=== PATIENT | female | born 1945 | race Caucasian/White ===

== ENCOUNTER 2019-10-11 14:35 | Inpatient (IN) | payer MEDICARE, OTHER, SELFPAY ==
[2019-10-11] VITALS (10 sets, daily range): BP systolic 134–206; BP diastolic 67–95; PULSE 53–80; RESP 14–20; TEMP 36.6; O2SAT 96–99; BMI 31.6
--- NOTE | 2019-10-11 14:39 | ED_ITS ---
Entered by Tania Rachel, acting as scribe for Pamela Phoenix DO Documented by User: Pamela Phoenix DO 10/13/19 11:15 HPI - Chest Pain General: Chief Complaint: Chest Pain Stated Complaint: cp Time Seen by Provider: 10/11/19 14:59 Source: patient and family Mode of arrival: ambulatory Limitations: no limitations History of Present Illness: HPI narrative: 74 yo female presents with chest pain and shortness of breath. pt states this started 1 week ago but worsened yesterday. pt states she has been anxious because of a tripped cancelled due to the virus and her spouse having a heart attack and not telling her. pt denies any other symptoms at this time. complaint: chest pain Onset (ago): week(s) (1 week ago) Timing of current episode: constant and still present Prior episodes: Yes Onset: during rest Pain location: substernal Pain radiation: left arm Severity: moderate Quality: aching Relieving factors: nothing Exacerbating factors: nothing Associated symptoms: Reports dyspnea and nausea; Deny fever(s) Treatment prior to arrival: none Review of Systems General: Reports: 10 or more systems reviewed and unremarkable except in HPI and below Const: Reports: night sweats; Denies: fever, chills or fatigue ENMT: Denies: throat pain Card: Denies: swelling of feet/ankles Resp: Reports: shortness of breath GI: Reports: nausea : Denies: difficulty urinating Musc: Denies: back pain or extremity swelling Skin/Breast: Denies: rash Neuro: Denies: headache, numbness in extremities or weakness in extremities PFSH ED PFSH: Medical History (Updated 10/13/19 @ 07:19 by Abram Fang MD) Abdominal hernia CAD (coronary artery disease) Cataract Colon cancer DJD (degenerative joint disease) Dyslipidemia Hernia History of DVT (deep vein thrombosis) Hypertension Surgical History History of History of cholecystectomy History of colon surgery History of colonoscopy History of hernia surgery History of hysterectomy History of right hemicolectomy Status post left foot surgery Family History Other CAD (coronary artery disease) Cancer Social History Smoking and tobacco status: never smoked Alcohol intake: never Substance/Drug Use: never Physical Exam Const: COMMON NORMALS: no apparent distress and oriented x3 GENERAL APPEARANCE: cooperative; not in distress HENMT: COMMON NORMALS: normocephalic HEAD & SCALP: normal to inspection and normocephalic MOUTH: oral and palatal mucosa normal and lip normal THROAT: posterior oropharynx normal and tonsils normal Neck/C-Spine: COMMON NORMALS: full ROM, no lymphadenopathy, supple and no meningeal signs GENERAL: Yes normal visual inspection and Yes trachea midline Chest: COMMONS NORMALS: inspection of chest normal CHEST: Yes tenderness Resp: COMMON NORMALS: normal respiratory effort and clear to auscultation bilaterally EFFORT & INSPECTION: Yes able to speak in complete sentences and No respiratory distress AUSCULTATION: clear to auscultation bilaterally, no rales, no rhonchi and no wheezes Cardio: COMMON NORMALS: regular rate, regular rhythm, S1 normal heart sound, S2 normal heart sound and no murmurs RATE: regular rate RHYTHM: regular rhythm HEART SOUNDS: S1 normal and S2 normal PERIPHERAL PULSES: radial pulses present and dorsalis pedis pulses present GI: COMMON NORMALS: normal to inspection, nondistended, normoactive bowel sounds, soft to palpation and non-tender INSPECTION: Yes normal to inspection AUSCULTATION: Yes normoactive bowel sounds PALPATION: Yes soft, No tender, No guarding and No rigid RECTAL EXAM: deferred : COMMON NORMALS: Yes no CVA tenderness BLADDER/KIDNEY EXAM: Yes no CVA tenderness Back/Pelvis: COMMON NORMALS: no CVA tenderness Extremity: COMMON NORMALS: normal to inspection, full ROM, normal capillary refill, no calf tenderness and no pedal edema Neuro: COMMON NORMALS: oriented x3, CN's II-XII intact bilaterally, moves all extremities and no focal motor deficits MENINGEAL SIGNS: Yes no meningeal signs Psych: ATTITUDE: Yes other (anxious) Skin: COMMON NORMALS: no rashes or lesions noted GENERAL SKIN EXAM: no rashes or lesions noted Course Vital Signs: Vital signs: Vital Signs Temperature 98.1 F 10/13/19 04:00 Pulse Rate 65 10/13/19 09:07 Respiratory Rate 19 H 10/13/19 09:07 Blood Pressure 170/82 10/13/19 09:07 Pulse Oximetry 97 10/13/19 09:07 MDM - Chest Pain MDM Narrative: Medical decision making narrative: ptd troponin is 24 so I am waiting for her 2 hour trop. Pts HEART score is a 4. Lab Data: Attestation: I reviewed the patient's lab results. Labs: Lab Results 10/11/19 10/11/19 10/11/19 Range/Units 15:12 15:12 15:12 WBC 6.6 (4.0-10.0) 10^3/ uL RBC 5.59 H (4.1-5.3) 10^6/u L Hgb 16.0 H (11.5-15.3) g/dL Hct 47.3 H (37.0-47.0) % MCV 84.6 (81-99) fL MCH 28.6 (28.0-34.0) pg MCHC 33.8 (30.0-36.0) g/dL RDW 12.4 (12.1-15.1) % Plt Count 195 (130-400) 10^3/c mm MPV 9.5 (7.4-10.4) fL Neut % (Auto) 68.7 % Lymph % (Auto) 22.1 % [place] % (Auto) 6.2 % Eos % (Auto) 2.1 % Baso % (Auto) 0.6 % Neut # (Auto) 4.5 (1.8-7.7) 10^3/u L Lymph # (Auto) 1.5 (0.8-4.8) 10^3/u L [place] # (Auto) 0.4 (0.2-0.9) 10^3/u L Eos # (Auto) 0.1 (0.0-0.8) 10^3/u L Baso # (Auto) 0.0 (0.0-0.1) 10^3/u L Nucleated RBC % (a uto) 0 % Nucleated RBCs # 0.0 /100WBC Sodium 142 (136-145) mmol/L Potassium 3.9 (3.5-5.1) mmol/L Chloride 103 (98-107) mmol/L Carbon Dioxide 24 (22-29) mmol/L Anion Gap 18.9 (5-19) BUN 16 (8-23) mg/dL Creatinine 1.0 H (0.5-0.9) mg/dL Glucose 150 H (65-115) mg/dL Estimat Average Gl ucose Hemoglobin A1c (4.0-6.0) % Calculated Osmolal ity 293 (285-295) mOsm/k g Calcium 10.8 H (8.5-10.5) mg/dL Total Bilirubin 0.7 (0.15-1.2) mg/dL AST 17 (0-32) U/L ALT 12 (0-33) U/L Alkaline Phosphata se 123 H (35-105) IU/L Troponin T Baselin e 24 H (0-10) ng/mL Troponin T 120 Min [place] (0-10) ng/mL Delta Troponin T (0-10) ABS# Total Protein 7.0 (6.6-8.7) g/dL Albumin 4.8 (3.5-5.2) g/dL Globulin 2.2 (1.3-4.6) g/dL 10/11/19 10/11/19 Range/Units 15:12 17:14 WBC (4.0-10.0) 10^3/ uL RBC (4.1-5.3) 10^6/u L Hgb (11.5-15.3) g/dL Hct (37.0-47.0) % MCV (81-99) fL MCH (28.0-34.0) pg MCHC (30.0-36.0) g/dL RDW (12.1-15.1) % Plt Count (130-400) 10^3/c mm MPV (7.4-10.4) fL Neut % (Auto) % Lymph % (Auto) % [place] % (Auto) % Eos % (Auto) % Baso % (Auto) % Neut # (Auto) (1.8-7.7) 10^3/u L Lymph # (Auto) (0.8-4.8) 10^3/u L [place] # (Auto) (0.2-0.9) 10^3/u L Eos # (Auto) (0.0-0.8) 10^3/u L Baso # (Auto) (0.0-0.1) 10^3/u L Nucleated RBC % (a uto) % Nucleated RBCs # /100WBC Sodium (136-145) mmol/L Potassium (3.5-5.1) mmol/L Chloride (98-107) mmol/L Carbon Dioxide (22-29) mmol/L Anion Gap (5-19) BUN (8-23) mg/dL Creatinine (0.5-0.9) mg/dL Glucose (65-115) mg/dL Estimat Average Gl ucose 117 Hemoglobin A1c 5.7 (4.0-6.0) % Calculated Osmolal ity (285-295) mOsm/k g Calcium (8.5-10.5) mg/dL Total Bilirubin (0.15-1.2) mg/dL AST (0-32) U/L ALT (0-33) U/L Alkaline Phosphata se (35-105) IU/L Troponin T Baselin e (0-10) ng/mL Troponin T 120 Min [place] 110.0 H (0-10) ng/mL Delta Troponin T 86.0 H* (0-10) ABS# Total Protein (6.6-8.7) g/dL Albumin (3.5-5.2) g/dL Globulin (1.3-4.6) g/dL Imaging Data^: CXR: Radiologist's impression: [address] [address] XRay Report Signed Patient: Sophia New #: [id number] : 5Acct#:[id number] Age/Sex: 74 / FADM Date: 10/11/19 [facility] Attending Dr: Ordering Provider/Ordering MD: Pamela Phoenix DO Date of Service: 10/11/19 Procedure(s): XR chest 1V portable [id number] Accession Number(s): [id number] Report Number: [id number] WS: [id number] Portable AP upright chest, 10/11/2019 Clinical Data: chest pain Comparison: PA and lateral chest, 02/03/2015. Findings: No nodules, masses or effusions are seen. Heart is normal. The pulmonary vascularity is not increased. No pneumonia or pneumothorax is noted. The aortic arch and descending aorta show tortuosity. XR/XR chest 1V portable [id number] Impression: Atherosclerosis. Dictated By:Anh Frazier MD Signed By:Anh Frazier MDSigned Date/Time:10/11/19 1555 EKG Data^: EKG 1: Attestation: I personally reviewed and interpreted this EKG as follows: EKG interpretation time: 14:45 Interpretation: moderate st depression ant lat leads, rate 85, nsr Discharge Plan Discharge Patient Disposition: Admitted As Inpatient Admit Provider: Hakeem Cody Clinical Impression: Chest pain Condition: Stable Discharge Orders: Discharge Order (Routine); Ordered 10/13/19 Ordered By: Jesse Marroquin Referrals: Abram Fang MD [Physician] - 4-7 days ([facility] will contact you to schedule an follow-up appointment in 4 to 7 days. If, you haven't heard from them by Monday. Please, call ) Chico Robles MD [Family Provider] - (Please, call for an follow-up appointm ent with Dr. Robles in 4 to 7 days. ) Discharge Diet: Cardiac Discharge Activity: As per cardiac/pulm rehab instructions Patient Instructions: Lisinopril (By mouth), Nitroglycerin, Rapid Release (By mouth), Atorvastatin (By mouth), Clopidogrel (By mouth), Myocardial Infarction (DC), Coronary Artery Disease (DC), Coronary Intravascular Stent Placement (DC), Chronic Hypertension (GEN), Post Angiogram Home Care Instructions, Post Heart Attack Stoplight Additional Instructions: -follow up with Dr. Fang in 1 week -follow up with primary care for blood pressure check in 1-2 weeks -do blood work cmp in 2-3 days -no lifiting over 5 lbs with right arm for next week Discharge Date/Time: 10/11/19 19:01 Sign Out Sign Out Data: Patient Sign Out occurred on 10/11/19 at 17:01. Patient's care was discussed, and care was transferred from Pamela Torres DO to Lisa Trivedi MD. Sign Out Comment: waiting for a 2 hour troponin, then disposition Last updated by Pamela Phoenix DO at 10/11/19 16:51 Coding Level of Care Code ED Airline Station Agent for Chg Fwd Exam Comprehensive Documented by User: Lisa Trivedi MD 10/11/19 19:13 HPI - Chest Pain General: Chief Complaint: Chest Pain Stated Complaint: cp Time Seen by Provider: 10/11/19 14:59 PFSH ED PFSH: Medical History (Updated 10/13/19 @ 07:19 by Abram Fang MD) Abdominal hernia CAD (coronary artery disease) Cataract Colon cancer DJD (degenerative joint disease) Dyslipidemia Hernia History of DVT (deep vein thrombosis) Hypertension Surgical History History of History of cholecystectomy History of colon surgery History of colonoscopy History of hernia surgery History of hysterectomy History of right hemicolectomy Status post left foot surgery Family History Other CAD (coronary artery disease) Cancer Social History Smoking and tobacco status: never smoked Alcohol intake: never Substance/Drug Use: never Course Vital Signs: Vital signs: Vital Signs Temperature 98.1 F 10/13/19 04:00 Pulse Rate 65 10/13/19 09:07 Respiratory Rate 19 H 10/13/19 09:07 Blood Pressure 170/82 10/13/19 09:07 Pulse Oximetry 97 10/13/19 09:07 MDM - Chest Pain MDM Narrative: Medical decision making narrative: [id number] Cody will come see the patient in the emergency department and decide where she needs to be admitted. Troponin at 2 hours is elevated 210. When I went to update her on her troponin result she tells me she is pain-free. Of note she also took a whole aspirin at home prior to coming to the ER. I asked her about her stress test in 2014 and she said that she was hospitalized but found to have some GI bleeding and colon cancer and needed a blood transfusion she never had a cardiac cath. Lab Data: Labs: Lab Results 10/11/19 10/11/19 10/11/19 Range/Units 15:12 15:12 15:12 WBC 6.6 (4.0-10.0) 10^3/ uL RBC 5.59 H (4.1-5.3) 10^6/u L Hgb 16.0 H (11.5-15.3) g/dL Hct 47.3 H (37.0-47.0) % MCV 84.6 (81-99) fL MCH 28.6 (28.0-34.0) pg MCHC 33.8 (30.0-36.0) g/dL RDW 12.4 (12.1-15.1) % Plt Count 195 (130-400) 10^3/c mm MPV 9.5 (7.4-10.4) fL Neut % (Auto) 68.7 % Lymph % (Auto) 22.1 % [place] % (Auto) 6.2 % Eos % (Auto) 2.1 % Baso % (Auto) 0.6 % Neut # (Auto) 4.5 (1.8-7.7) 10^3/u L Lymph # (Auto) 1.5 (0.8-4.8) 10^3/u L [place] # (Auto) 0.4 (0.2-0.9) 10^3/u L Eos # (Auto) 0.1 (0.0-0.8) 10^3/u L Baso # (Auto) 0.0 (0.0-0.1) 10^3/u L Nucleated RBC % (a uto) 0 % Nucleated RBCs # 0.0 /100WBC Sodium 142 (136-145) mmol/L Potassium 3.9 (3.5-5.1) mmol/L Chloride 103 (98-107) mmol/L Carbon Dioxide 24 (22-29) mmol/L Anion Gap 18.9 (5-19) BUN 16 (8-23) mg/dL Creatinine 1.0 H (0.5-0.9) mg/dL Glucose 150 H (65-115) mg/dL Estimat Average Gl ucose Hemoglobin A1c (4.0-6.0) % Calculated Osmolal ity 293 (285-295) mOsm/k g Calcium 10.8 H (8.5-10.5) mg/dL Total Bilirubin 0.7 (0.15-1.2) mg/dL AST 17 (0-32) U/L ALT 12 (0-33) U/L Alkaline Phosphata se 123 H (35-105) IU/L Troponin T Baselin e 24 H (0-10) ng/mL Troponin T 120 Min [place] (0-10) ng/mL Delta Troponin T (0-10) ABS# Total Protein 7.0 (6.6-8.7) g/dL Albumin 4.8 (3.5-5.2) g/dL Globulin 2.2 (1.3-4.6) g/dL 10/11/19 10/11/19 Range/Units 15:12 17:14 WBC (4.0-10.0) 10^3/ uL RBC (4.1-5.3) 10^6/u L Hgb (11.5-15.3) g/dL Hct (37.0-47.0) % MCV (81-99) fL MCH (28.0-34.0) pg MCHC (30.0-36.0) g/dL RDW (12.1-15.1) % Plt Count (130-400) 10^3/c mm MPV (7.4-10.4) fL Neut % (Auto) % Lymph % (Auto) % [place] % (Auto) % Eos % (Auto) % Baso % (Auto) % Neut # (Auto) (1.8-7.7) 10^3/u L Lymph # (Auto) (0.8-4.8) 10^3/u L [place] # (Auto) (0.2-0.9) 10^3/u L Eos # (Auto) (0.0-0.8) 10^3/u L Baso # (Auto) (0.0-0.1) 10^3/u L Nucleated RBC % (a uto) % Nucleated RBCs # /100WBC Sodium (136-145) mmol/L Potassium (3.5-5.1) mmol/L Chloride (98-107) mmol/L Carbon Dioxide (22-29) mmol/L Anion Gap (5-19) BUN (8-23) mg/dL Creatinine (0.5-0.9) mg/dL Glucose (65-115) mg/dL Estimat Average Gl ucose 117 Hemoglobin A1c 5.7 (4.0-6.0) % Calculated Osmolal ity (285-295) mOsm/k g Calcium (8.5-10.5) mg/dL Total Bilirubin (0.15-1.2) mg/dL AST (0-32) U/L ALT (0-33) U/L Alkaline Phosphata se (35-105) IU/L Troponin T Baselin e (0-10) ng/mL Troponin T 120 Min [place] 110.0 H (0-10) ng/mL Delta Troponin T 86.0 H* (0-10) ABS# Total Protein (6.6-8.7) g/dL Albumin (3.5-5.2) g/dL Globulin (1.3-4.6) g/dL Discharge Plan Discharge Patient Disposition: Admitted As Inpatient Admit Provider: Hakeem Cody Clinical Impression: Chest pain Condition: Stable Discharge Orders: Discharge Order (Routine); Ordered 10/13/19 Ordered By: Jesse Marroquin Referrals: Abram Fang MD [Physician] - 4-7 days ([facility] will contact you to schedule an follow-up appointment in 4 to 7 days. If, you haven't heard from them by Monday. Please, call ) Chico Robles MD [Family Provider] - (Please, call for an follow-up appointment with Dr. Robles in 4 to 7 days. ) Discharge Diet: Cardiac Discharge Activity: As per cardiac/pulm rehab instructions Patient Instructions: Lisinopril (By mouth), Nitroglycerin, Rapid Release (By mouth), Atorvastatin (By mouth), Clopidogrel (By mouth), Myocardial Infarction (DC), Coronary Artery Disease (DC), Coronary Intravascular Stent Placement (DC), Chronic Hypertension (GEN), Post Angiogram Home Care Instructions, Post Heart Attack Stoplight Additional Instructions: -follow up with Dr. Fang in 1 week -follow up with primary care for blood pressure check in 1-2 weeks -do blood work cmp in 2-3 days -no lifiting over 5 lbs with right arm for next week Discharge Date/Time: 10/11/19 19:01 Sign Out Sign Out Data: Patient Sign Out occurred on 10/11/19 at 17:01. Patient's care was discussed, and care was transferred from Pamela Torres DO to Lisa Trivedi MD. Sign Out Comment: waiting for a 2 hour troponin, then disposition Last updated by Pamela Phoenix DO at 10/11/19 16:51 Coding Level of Care Code ED Airline Station Agent for Chg Fwd Exam Comprehensive The documentation recorded by the Wilson pena Bridget Annette, accurately reflects the service I personally performed and the decisions made by , Pamela Phoenix DO
--- NOTE | 2019-10-11 15:07 | ECG_ITS ---
Measurements Intervals [place] Rate: 85 P: 80 VA: 165 QRS: 14 QRSD: 97 T: 68 QT: 375 QTc: [address] DEPRESSION [0.05+ mV ST DEPRESSION] Compared to ECG 05/30/2017 10:58:03 ST (T wave) deviation now present Sinus arrhythmia no longer present T-wave abnormality no longer present Electronically Signed On 10-11-2019 15:38:09 CDT by Abram Fang M.D. [id number]
--- NOTE | 2019-10-11 15:07 | XR_ITS ---
WS: [id number] Portable AP upright chest, 10/11/2019 Clinical Data: chest pain Comparison: PA and lateral chest, 02/03/2015. Findings: No nodules, masses or effusions are seen. Heart is normal. The pulmonary vascularity is not increased. No pneumonia or pneumothorax is noted. The aortic arch and descending aorta show tortuosi ty. XR/XR chest 1V portable [id number] Impression: Atherosclerosis.
[2019-10-11 15:27] LABS: Basophils % 0.6 %; Eosinophils # 0.1 10^3/uL (0.0-0.8); Eosinophils % 2.1 %; Hematocrit 47.3 % (37.0-47.0); Lymphocytes # 1.5 10^3/uL (0.8-4.8); Lymphocytes % 22.1 %; Mean Corpuscular HGB Conc 33.8 g/dL (30.0-36.0); Mean Corpuscular Hemoglobin 28.6 pg (28.0-34.0); Mean Corpuscular Volume 84.6 fL (81-99); Mean Platelet Volume 9.5 fL (7.4-10.4); Monocytes # 0.4 10^3/uL (0.2-0.9); Monocytes % 6.2 %; Neutrophils # 4.5 10^3/uL (1.8-7.7); Neutrophils % 68.7 %; Nucleated Red Blood Cells % 0 %; Platelet Count 195 10^3/cmm (130-400); Red Blood Count 5.59 10^6/uL (4.1-5.3); Red Cell Distribution Width 12.4 % (12.1-15.1); White Blood Count 6.6 10^3/uL (4.0-10.0)
--- NOTE | 2019-10-11 15:34 | PC.NURSE ---
Patient ambulated to restroom with steady gait at this time.
[2019-10-11 15:40] LABS: Alanine Aminotransferase 12 U/L (0-33); Albumin Level 4.8 g/dL (3.5-5.2); Alkaline Phosphatase 123 IU/L (35-105); Anion Gap 18.9 (5-19); Aspartate Amino Transferase 17 U/L (0-32); Blood Urea Nitrogen 16 mg/dL (8-23); Calcium 10.8 mg/dL (8.5-10.5); Carbon Dioxide 24 mmol/L (22-29); Chloride 103 mmol/L (98-107); Globulin 2.2 g/dL (1.3-4.6); Glucose 150 mg/dL (65-115); Osmolality Calculated 293 mOsm/kg (285-295); Potassium 3.9 mmol/L (3.5-5.1); Sodium 142 mmol/L (136-145); Total Bilirubin 0.7 mg/dL (0.15-1.2)
[2019-10-11 15:41] LABS: Troponin(5th) Baseline 24 ng/mL (0-10)
[2019-10-11] MEDS: cloNIDine 0.1 mg Tablet PO (16:38)
--- NOTE | 2019-10-11 17:07 | ECG_ITS ---
Measurements Intervals [place] Rate: 74 P: 69 CT: 177 QRS: -16 QRSD: 93 T: 76 QT: 372 QTc: [address] & T-WAVE ABNORMALITY Compared to ECG 10/11/2019 14:45:35 T-wave abnormality now present ST (T wave) deviation no longer present Electronically Signed On 10-11-2019 18:10:50 CDT by Bertha Breen M.D. [id number]
[2019-10-11] MEDS: nitroglycerin 1 gm/inch oint Pkt 0.5 INCH TOPICAL (18:09)
--- NOTE | 2019-10-11 18:32 | PM.HP ---
Providers/Chief Complaint Chief Complaint: cp History of Present Illness Ariella New is a 74 year old female who presents to the emergency department with some chest discomfort. She reports she has been having it at least the last for 5 days. She was experienced in with this with exertion, heavy feeling radiating to her left arm. This would go promptly away with rest. She had actually gone to her patient's cardiac rehab and experienced. She reports today it is just come and gone all day even without exertion. She reports currently she is chest discomfort free. She believes the nitroglycerin she received sublingually helped some. She reports she is already taken an aspirin today. She denies any prior history of coronary disease. She reports no recent history of fever, or cough. She reports she always has a little nasal congestion which is unchanged. She denies any recent history of significant heartburn, hematemesis, blood in stool, or black or tarry stool. She reports associated symptoms with the chest discomfort was queasiness of her stomach, and shortness of breath. She denies any pleuritic quality to the pain. Review of Systems General: Reports: 10 or more systems reviewed and unremarkable except in HPI and below Const: Denies: fever or chills Eyes: Denies: blurry vision ENMT: Denies: throat pain Card: Reports: chest pain; Denies: palpitations Resp: Reports: shortness of breath GI: Reports: nausea; Denies: abdominal pain : Denies: flank pain Musc: Reports: extremity pain; Denies: back pain Skin/Breast: Denies: rash Neuro: Reports: headache Psych: Denies: depression Endo: Denies: excessive urination Gavin/Lymph: Denies: easy bruising All/Imm: Denies: hives Medications/Allergies Home Medications Medication Instructions Recorded Confirmed Last Taken Type Fishoil 1 tab PO DAILY 10/11/19 10/11/19 10/10/19 History Sary Superfruit Otc 250 mg PO DAILY 10/11/19 10/11/19 10/11/19 History amlodipine 5 mg PO DAILY 10/11/19 10/11/19 10/11/19 History aspirin 1 mg PO PRN PRN 10/11/19 10/11/19 10/11/19 History benazepril 20 mg PO DAILY 10/11/19 10/11/19 10/11/19 History coenzyme Q10 [CoQ-10] 100 mg PO DAILY 10/11/19 10/11/19 10/10/19 History magnesium 500 mg PO DAILY 10/11/19 10/11/19 Unknown History Allergies Allergy/AdvReac Type Severity Reaction Status Date / Time CILLINS Allergy ALGY-Rash Uncoded 10/11/19 14:46 MYCINS Allergy ALGY-Nasal Uncoded 10/11/19 14:46 Discharge STEROIDS Allergy Unknown Uncoded 10/11/19 14:46 PFSH Acute PFSH: Medical History (Updated 10/11/19 @ 18:42 by Hakeem Cody MD) Abdominal hernia Cataract Colon cancer DJD (degenerative joint disease) Hernia History of DVT (deep vein thrombosis) Hypertension Surgical History (Updated 10/11/19 @ 18:41 by Hakeem Cody MD) History of History of cholecystectomy History of colon surgery History of colonoscopy History of hernia surgery History of hysterectomy History of right hemicolectomy Status post left foot surgery Family History (Updated 10/11/19 @ 18:39 by Hakeem Cody MD) Other CAD (coronary artery disease) Cancer Social History (Updated 10/11/19 @ 18:39 by Hakeem Cody MD) Smoking and tobacco status: never smoked Alcohol intake: never Substance/Drug Use: never Vitals/I&O/Wt Last Vital Signs Temp 97.9 F 10/11/19 14:40 Pulse 75 10/11/19 17:00 Resp 20 H 10/11/19 17:00 BP 179/92 10/11/19 17:00 Pulse Ox 96 10/11/19 17:00 Weight last 48 hrs Weight 83.461 kg Physical Exam Narrative: EXAM NARRATIVE: General exam is a white female, reporting she is chest discomfort free, in no apparent distress HEENT: Pupils equally round. Oropharynx is clear. Neck is supple no lymphadenopathy or thyromegaly Cardiovascular regular rate and rhythm without murmur Lungs clear no wheezing or crackles Abdomen is soft with positive bowel sounds. No obvious organomegaly was deferred Extremities no cyanosis clubbing or edema. Left leg with valgus deformity of the knee Skin without rash Neuro no focal deficits Data : 10/11/19 15:12 10/11/19 15:12 Other data: Both EKGs are reviewed. Normal sinus rhythm, normal axis. Initial EKG has some lateral ST depression that appears to improve on the second tracing. Chest x-ray is performed which demonstrates no infiltrate A&P Assessment and plan (1) Chest pain: She has a history consistent with angina. Troponin elevation, delta, is consistent with non-ST elevation myocardial infarction. EKG is concerning for ischemic changes initially. Admission to cardiac stepdown unit Nitroglycerin ointment Initiate statin, lipid profile in the morning Aspirin daily Full dose anticoagulation Initiate metoprolol 12.5 mg twice daily Continue FAN inhibitor Hold Norvasc for now as initiating beta-alex Continue to trend troponin Cardiology consultation Check echocardiogram Check TSH Status: Acute Qualifiers: Chest pain type: unspecified Qualified Code(s): R07.9 - Chest pain, unspecified Code(s): R07.9 - Chest pain, unspecified (2) Hypertension: Medications as above Status: Acute Code(s): I10 - Essential (primary) hypertension Additional A&P Information Elevated glucose. Check hemoglobin A1c Unknown lipid status. Check lipid profile Past history of DVT History of colon cancer. According to patient this was localized and she received no chemotherapy DJD Attestations Medical Necessity Statement*: Will need greater than 2 midnight stay for evaluation of chest discomfort, non-ST elevation myocardial infarction. Time Spent in Patient Care: Greater than 35 minutes Coding Level of Care Code Acute Executive Compensation Analyst for Tram García Diagnoses Chest pain R07.9 Chest pain type: unspecified Hypertension I10
[2019-10-11 19:35] LABS: Estmated Average Glucose 117; Hemoglobin A1C 5.7 % (4.0-6.0)
--- NOTE | 2019-10-11 19:39 | PC.NURSE ---
Patient arrived from ER at 1900 via stretcher. Patient is Alert and oriented. Placed on telemetry and vitals obtained. Patient oriented to the room and call light is within reach. Will continue to monitor.
[2019-10-11] MEDS: enoxaparin 80 mg/0.8 mL Syringe SUBCUT (20:37)
[2019-10-11 22:11] LABS: Troponin 5 6HR 210.9 ng/mL (0-10); Troponin 5 6HR Delta 186.9 ng/L (0-12)
[2019-10-12] VITALS (26 sets, daily range): BP systolic 125–174; BP diastolic 64–96; PULSE 41–81; RESP 9–77; TEMP 36.8; O2SAT 93–96
[2019-10-12] MEDS: nitroglycerin 1 gm/inch oint Pkt 0.5 INCH TOPICAL ×2 (00:38→06:26)
[2019-10-12 04:12] LABS: Basophils % 0.6 %; Eosinophils # 0.1 10^3/uL (0.0-0.8); Eosinophils % 1.8 %; Hematocrit 42.7 % (37.0-47.0); Hemoglobin 14.1 g/dL (11.5-15.3); Lymphocytes # 2.1 10^3/uL (0.8-4.8); Lymphocytes % 30.2 %; Mean Corpuscular Hemoglobin 28.4 pg (28.0-34.0); Mean Corpuscular Volume 86.1 fL (81-99); Mean Platelet Volume 9.4 fL (7.4-10.4); Monocytes # 0.5 10^3/uL (0.2-0.9); Monocytes % 6.7 %; Neutrophils # 4.1 10^3/uL (1.8-7.7); Neutrophils % 60.6 %; Nucleated Red Blood Cells % 0 %; Platelet Count 188 10^3/cmm (130-400); Red Blood Count 4.96 10^6/uL (4.1-5.3); Red Cell Distribution Width 12.5 % (12.1-15.1); White Blood Count 6.8 10^3/uL (4.0-10.0)
[2019-10-12 05:01] LABS: Anion Gap 10.5 (5-19); Blood Urea Nitrogen 14 mg/dL (8-23); Calcium 10.3 mg/dL (8.5-10.5); Carbon Dioxide 29 mmol/L (22-29); Chloride 106 mmol/L (98-107); Cholesterol 200 mg/dL (0-200); Glucose 137 mg/dL (65-115); HDL Cholesterol 54 mg/dL (60-100); LDL Cholesterol Calculated 117 mg/dL (50-129); LDL HDL Ratio 2.17 RATIO (0.00-3.22); Osmolality Calculated 292 mOsm/kg (285-295); Potassium 3.5 mmol/L (3.5-5.1); Sodium 142 mmol/L (136-145); Triglycerides 146 mg/dL (0-150)
--- NOTE | 2019-10-12 07:51 | PM.CONSULT ---
Providers/Reason For Consult Consulting Physican/Specialty*: Cardiovascular medicine Reason for Consult*: Chest discomfort, elevated troponin Attending Physician: Jesse Marroquin MD History of Present Illness History of Present Illness Ariella New is a 74 year old female who has been having chest discomfort for a few weeks. Over the last 3 days it has worsened in frequency and intensity. She wrote it off to indigestion and was trying to ignore it. She has purposefully not paid very much attention to it. The symptoms are associated with shortness of breath and radiation down the left arm. Yesterday she began to have the discomfort at rest. She came to the emergency room and was given aspirin and Nitropaste. She is had a couple of brief episodes since being admitted. She still has the Nitropaste in place. Her troponins are elevated. Her EKG shows some minor ST segment depression in the lateral leads. She has no history of heart disease. Review of Systems General: Reports: 10 or more systems reviewed and unremarkable except in HPI and below Meds/Allergies Home Medications and Allergies Home Medications Medication Instructions Recorded Confirmed Type Fishoil 1 tab PO DAILY 10/11/19 10/11/19 History Sary Superfruit Otc 250 mg PO DAILY 10/11/19 10/11/19 History amlodipine 5 mg PO DAILY 10/11/19 10/11/19 History aspirin 1 mg PO PRN PRN 10/11/19 10/11/19 History benazepril 20 mg PO DAILY 10/11/19 10/11/19 History coenzyme Q10 [CoQ-10] 100 mg PO DAILY 10/11/19 10/11/19 History magnesium 500 mg PO DAILY 10/11/19 10/11/19 History Allergies Allergy/AdvReac Type Severity Reaction Status Date / Time CILLINS Allergy ALGY-Rash Uncoded 10/11/19 14:46 MYCINS Allergy ALGY-Nasal Uncoded 10/11/19 14:46 Discharge STEROIDS Allergy Unknown Uncoded 10/11/19 14:46 Current Medications Current Medications Generic Name Dose Route Start Last Admin Trade Name Freq PRN Reason Stop Dose Admin Enoxaparin Sodium 80 mg 10/11/19 20:00 10/11/19 20:37 Lovenox SUBCUT 80 mg Q12H ARELI Administration Nitroglycerin 0.5 inch 10/12/19 00:00 10/12/19 06:26 Nitro-Bid TOPICAL 0.5 inch Q6H ARELI Administration PFSH Acute PFSH: Medical History Abdominal hernia Cataract Colon cancer DJD (degenerative joint disease) Dyslipidemia Hernia History of DVT (deep vein thrombosis) Hypertension Surgical History History of History of cholecystectomy History of colon surgery History of colonoscopy History of hernia surgery History of hysterectomy History of right hemicolectomy Status post left foot surgery Family History Other CAD (coronary artery disease) Cancer Social History Smoking and tobacco status: never smoked Alcohol intake: never Substance/Drug Use: never Vitals/I&O/Wt Last Vital Signs Temp 98.3 F 10/12/19 05:53 Pulse 80 10/12/19 05:53 Resp 77 H 10/12/19 05:53 BP 159/88 10/12/19 05:53 Pulse Ox 94 10/12/19 05:53 10/11/19 10/12/19 10/12/19 22:59 06:59 14:59 Intake Total 150 / 150 Balance 150 / 150 Weight last 48 hrs Weight 184 lb Physical Exam Narrative: EXAM NARRATIVE: GENERAL: In general she is comfortable this morning. HEENT: Exam within normal limits. NECK: Supple without jugular vein distention. The carotid upstroke is normal without bruits. BACK: Exam normal. LUNGS: Clear. HEART: Regular rate and rhythm. ABDOMEN: Benign without organomegaly or tenderness. EXTREMITIES: No edema. NEUROLOGIC: Exam normal. SKIN: Unremarkable. Data Other Data: Other data: Troponin 24, 110, 210. EKG reveals sinus rhythm with lateral ST segment depression minimally. Chest x-ray unremarkable. Glucose 150. A&P Assessment and plan (1) Acute non-ST segment elevation myocardial infarction: Status: Acute Code(s): I21.4 - Non-ST elevation (NSTEMI) myocardial infarction (2) Hypertension: Status: Acute Code(s): I10 - Essential (primary) hypertension (3) Dyslipidemia: Status: Acute Code(s): E78.5 - Hyperlipidemia, unspecified (4) Chest pain: Status: Acute Qualifiers: Chest pain type: unspecified Qualified Code(s): R07.9 - Chest pain, unspecified Code(s): R07.9 - Chest pain, unspecified Additional A&P Information She needs coronary angiography. We will proceed later this morning. She has been made n.p.o. Consult Attestations Medical Necessity Statement: Not applicable Coding Level of Care Code New Pt Acute Harvesting Contractor for wilmar García Patient Type New History Detailed Exam Detailed Medical Decision Making Moderate Complexity Diagnoses Acute non-ST segment elevation myocardial infarction I21.4 Hypertension I10 Dyslipidemia E78.5 Chest pain R07.9 Chest pain type: unspecified
--- NOTE | 2019-10-12 08:32 | XACV_ITS ---
Exam Room: [facility] Ht: 163 cm Wt: 83 kg BSA: 1.97 m2 Gender: Female : 1945 Any Known Allergies: Other Exam Priority: Routine Procedure(s): Procedure Description: Diagnostic procedure Procedure Description: PCI procedure Procedure Description: Left ventriculography Procedure Description: PTCA Procedure Description: Miscellaneous Procedure Description: Coronary Angiography Diagnostic Cath Status: Urgent Diagnostic Findings Typical angina with troponin leak. EKG with minor ST depression lateral precordial leads. Angiography reveals right dominance. The left main coronary artery is normal. The LAD contains minor narrowing of 10 to 20% at the ostium. There is a tiny second diagonal branch which contains an 80% ostial stenosis. No other LAD lesions. The circumflex is basically normal. There is a very high marginal branch or ramus intermedius branch which has a 99% discrete stenosis in the proximal portion. This is the culprit lesion. The right coronary artery has an unusual takeoff. There is a 20 to 30% proximal stenosis and a 20 to 30% mid to distal stenosis. Otherwise no stenoses of the right coronary artery. PCI Status: Urgent PCI LVEF Assessed: Yes PCI Indication: NSTE - ACS Interventional Findings The ramus intermedius was stented primarily 2.75 x 12 mm stent without incident. Excellent angiographic result. Decision for PCI with Surgical Consult: No PCI for Multi-vessel Disease: No Conclusions Typical angina non-ST segment elevation AL. 99% ramus intermedius stented primarily. Otherwise minimal nonobstructive coronary artery disease. Mild to moderate hypokinesis of the high lateral wall. Ejection fraction 50%. Interventional RX Recommendation: PCI w/o planned CABG Diagnostic RX Recommendation: PCI w/o planned CABG Anticoagulation: Heparin Ventriculography Ejection Fraction: 50.0 % Pressures Phase:Rest AO : 195 mmHg / 55 mmHg ( 70 mmHg ) @ 4:54:00 AM 186 mmHg / 91 mmHg ( 132 mmHg ) @ 5:08:00 AM 187 mmHg / 90 mmHg ( 130 mmHg ) @ 5:08:00 AM LV : 169 mmHg / 11 mmHg / @ 5:07:00 AM 174 mmHg / 13 mmHg / @ 5:08:00 AM 168 mmHg / 11 mmHg / @ 5:08:00 AM Valves Phase:DefaultPhase AV : 0.0 mmHg @ 10:31:20 AM AV Mean Gradient: 0.0 mmHg @ 10:31:20 AM Clinical Evaluation EBL: 5mL-10mL Procedural Details Procedure Consent Obtained. Pre-Procedure Time Out. Identified patient by full name and date of as verbalized by the patient/guarantor. Does the consent match the physician's order: Yes. Accurate & Complete Informed Consent: Yes. Inpatient/Outpatient History & Physical on Chart: Yes. If H&P is completed, is and addenduem needed: No; If yes, is the addendum complete: N/A. Visualize and Verify Site with Patient/Guarantor: N/A. Relevant Radiology Images available: Yes. Pre-op teaching completed and patient verbalized understanding. The risks, benefits, and alternatives of sedation and/or procedure were discussed by physician. The patient agrees to continue. Procedure started. Correct patient, site and procedure confirmed by cath team. Current diagnosis: Chest Pain. PERRLA. Strong, equal hand psychiatric aide bilaterally. Lungs clear x 5 lobes. IV Site on Arrival: 20 gauge in the right anticubital. IV Fluids: 0.9% NaCl at KVO. 0 mL infused prior to molder labels. Pre Procedural Pulses: bilateral dorsalis pedis was 2+. Pre Procedural Pulses: bilateral posterior tibial was 2+. Pre Procedural Pulses: bilateral radial was 3+. Oxygen started at 2liters/min via nasal canula. bilateral groins was prepped with chloroprep then draped in the usual sterile fashion. right radial was prepped with chloroprep then draped in the usual sterile fashion. Physician notified. Baseline sample Acquired. HR: 94 BPM. Equipment: 6F - Radial. [employer] Manifold Kit Model BT 2000. Cardiac Cath Pack. Heparinized Saline (2 units/mL), 1000 mL bag. Physician arrived. Physician scrubbed in. Immediate Pre-Procedure Time Out. Correct Patient: Yes; Correct Procedure: Yes; Correct Site: Yes; Correct Patient Position: Yes; Correct Supplies: Yes; Dried Flammable Prep: Yes; Blood Products Available: No;. Lidocaine 1% infiltrated to the right radial. Arterial access obtained. A 6 martiniquais TIG catheter in over wire. Multiple views taken of left coronary artery. Catheter redirected to the RCA. Catheter out. A 6 martiniquais JR4 catheter in over wire. Catheter out. A 6 martiniquais 3DRC catheter in over wire. Multiple views taken of right coronary artery. Catheter out. A 6 martiniquais Angled Pig catheter in over wire. EDP Sample taken: LV 169/11,33; HR: 72 BPM; SpO2: 97%. LV gram performed in VALDIVIA @ 10 mL/second for a total of 30 mL. EDP Sample taken: LV 174/13,35; HR: 69 BPM; SpO2: 98%. Pullback taken: LV 168/11,35; AO 186/91(132); Mean: 0mmHg, Peak to Peak: 0mmHg, SEP: 4sec/min; HR: 69 BPM; SpO2: 97%. Catheter out. 6 martiniquais XB 3 guide catheter was inserted over the wire. [place] guidewire was advanced through the guide catheter to lesion in the prox Ramus. Inflation Number : 1 Cely Gordillo ANSELMO 2.75X12 TERESITA -Lot Number#[id number] was prepped and advanced across the Ramus. The stent was deployed at 14 ELVIRA for 0:47 seconds. Stent expiration date: 07/02/2021. Stent balloon out over wire. Wire out. Guide catheter out. Vital chart was stopped. TR band placed. Hemostasis obtained. Post Procedure: Pulses reassessed and unchanged. PERRLA. Strong, equal hand psychiatric aide bilaterally. No VTE prophylaxis required. Medication's Wasted: Lidocaine 1% = 18 mL. Medication's Wasted: Heparin = 1000 units. Total IV fluids: 200 mL. PCI Indication: NSTE. [facility] Clinical Fraility Score: 2: Well. Sub Plant Manager Indications: ACS > 24 hours. Chest Pain Symptom Assessment: Typical Angina Symptoms. Cardiovascular Instability: No. Post-op diagnosis: NSTEMI. Complications: None. Estimated blood loss: 5mL-10mL. Procedure completed. Patient transferred by wheelchair to 1st floor. Site: Right Radial artery Sheath Size: 6 Fr Hemostasis Success: Unsuccessful Procedure Medications Start: 9:23 AM Stop: 9:23 AM Medication: Fentanyl Amount: 25 mcg Route: I.V. Start: 9:37 AM Stop: 9:37 AM Medication: Versed 1 mg and Fentanyl 25 mcg Amount: 1 Route: I.V. Start: 9:49 AM Stop: 9:49 AM Medication: Versed Amount: 1 mg Route: I.V. Start: 9:51 AM Stop: 9:51 AM Medication: Verapamil Amount: 5 mg Route: I.A. Start: 9:53 AM Stop: 9:53 AM Medication: Heparin Amount: 5000 units Route: I.V. Start: 10:10 AM Stop: 10:10 AM Medication: Fentanyl Amount: 25 mcg Route: I.V. Start: 10:19 AM Stop: 10:19 AM Medication: Plavix Amount: 600 mg Route: P.O. I, the attending physician, have reviewed and verified all procedure medications. Yes, all medications given per verbal order History/Risk Factors Hypertension: Yes Dyslipidemia: No Peripheral Arterial Disease (PAD): No Myocardial Infarction (AL): No Obesity: No Renal Disease: No Prior Interventions PCI: No CABG: No Valve Surgery: No Report Signatures Finalized by:Dr. Abram Fang MD on 10/12/2019 10:43:21 AM
[2019-10-12] MEDS: metoprolol tartrate 25 mg Tablet 12.5 MG PO ×2 (08:48→17:31)
[2019-10-12] MEDS: diphenhydrAMINE 50 mg Capsule PO (08:48)
[2019-10-12] MEDS: sodium chloride 0.9% 1,000 ML 50 ML IV (08:49)
[2019-10-12] MEDS: aspirin 325 mg EC Tablet PO (08:49)
[2019-10-12] MEDS: atorvastatin 40 mg Tablet PO (08:49)
[2019-10-12] MEDS: lisinopril 20 mg Tablet PO (08:49)
--- NOTE | 2019-10-12 12:12 | PM.PN ---
Subjective Subjective: Interval history: This morning states that she had some episodes of chest pain overnight, states that she has been stressed recently with the coronavirus news, she had plans on going to [place], but she has had to cancel a trip, her family wanted her to go, the plan is for her to have a cardiac catheterization Vitals/I&O/Wt Last Vital Signs Temp 98.3 F 10/12/19 05:53 Pulse 48 L 10/12/19 10:41 Resp 21 H 10/12/19 10:41 BP 137/79 10/12/19 10:41 Pulse Ox 93 10/12/19 10:41 10/11/19 10/12/19 10/12/19 22:59 06:59 14:59 Intake Total 150 / 150 84.167 / 84.167 Balance 150 / 150 84.167 / 84.167 Weight last 48 hrs Weight 83.461 kg Physical Exam Const: COMMON NORMALS: no apparent distress and oriented x3 HENMT: COMMON NORMALS: normocephalic HEAD & SCALP: normocephalic Neck/C-Spine: COMMON NORMALS: no JVD Resp: COMMON NORMALS: normal respiratory effort, no retractions, no use of accessory muscles and clear to auscultation bilaterally AUSCULTATION: clear to auscultation bilaterally Cardio: COMMON NORMALS: no JVD, regular rate, regular rhythm, S1 normal heart sound and S2 normal heart sound RATE: regular rate RHYTHM: regular rhythm HEART SOUNDS: S1 normal and S2 normal GI: COMMON NORMALS: normal to inspection, nondistended, normoactive bowel sounds, soft to palpation, non-tender, no hepatosplenomegaly, no masses and no bruits PALPATION: Yes soft and Yes no hepatosplenomegaly Extremity: COMMON NORMALS: normal capillary refill, no clubbing, cyanosis or edema, no calf tenderness and no pedal edema Neuro: COMMON NORMALS: oriented x3 Psych: COMMON NORMALS: mental status grossly normal Data : 10/12/19 03:46 10/12/19 03:46 A&P Assessment and plan (1) Chest pain: She has a history consistent with angina. Troponin elevation, delta, is consistent with non-ST elevation myocardial infarction. EKG is concerning for ischemic changes Admission to cardiac stepdown unit Nitroglycerin ointment Initiate stati Aspirin daily Full dose anticoagulation Initiate metoprolol 12.5 mg twice daily Continue FAN inhibitor Hold Norvasc for now as initiating beta-alex Cardiology consultation, Plan for cardiac catheterization this morning Check echocardiogram Status: Acute Qualifiers: Chest pain type: unspecified Qualified Code(s): R07.9 - Chest pain, unspecified Code(s): R07.9 - Chest pain, unspecified (2) Hypertension: Medications as above Status: Acute Code(s): I10 - Essential (primary) hypertension Additional A&P Information Elevated glucose. Check hemoglobin A1c Unknown lipid status. Check lipid profile Past history of DVT History of colon cancer. According to patient this was localized and she received no chemotherapy DJD Attestations Medical Necessity Statement*: Plan is for cardiac catheterization for chest pain this morning Coding Level of Care Code Acute Line O Scribe Operator for Tram García Diagnoses Chest pain R07.9 Chest pain type: unspecified Hypertension I10
[2019-10-12] MEDS: sodium chloride 0.45% 1,000 ML 100 ML IV (13:30)
--- NOTE | 2019-10-12 13:48 | PC.CHAP ---
Pastoral Care Encounter/Spiritual Assessment Type of Contact [] Declined car audio installer visit [] Patient/Family/Request visit [] Outpatient visit [] Follow-up visit [] Physician referral [] Code/Alert [X] Routine visit [] Staff referral [] Actively dying [] Patient sleeping [] Family support [] [] Out of room [] Palliative care [] [] Receiving care in room [] Pre-surgical visit [] Trauma [] Long length of stay [] ICU visit [] Other: Relational/Emotional Strength [] Patient feels connected with others/family/visitors/staff [] Distress [] Loneliness/isolation [] Abandonment Spirituality of Patient [] Person of Tashia [] Attends Catholic of their Tashia [] Believes in Prayer [] Reads Bible or Oriental Orthodox materials [] There are Spiritual issues to be addressed Mixed Crop And Livestock Farmer Interventions [X] Prayer [] Active listening [] Non-anxious presence [] Spiritual/emotional support [] Crisis/trauma care [] Spiritual counseling [] Bereavement support [] Provided bereavement packet [] Provided Bible/devotional materials [] Provided toy/stuffed animal, coloring book to patient or family member [] Provided Communion [] Anointing/[place] [] Salvation [] Completed spiritual assessment [] Other: Impact on Illness or Injury [] Angry [] Fearful [] Anxious [] Often cries [] Exhaustion [] Unable to work [] Unable to attend taoist [] Unable to walk/stand [] Unable to read [] Unable to drive [] Unable to eat/drink [] Unable to sleep [] Unable to be with family [] Patient intubated [] Other: Summary PLEASANT VISIT, HAD PRAYER, FELLOWSHIPS AT [facility] Time spent with patient
--- NOTE | 2019-10-12 13:50 | PC.CHAP ---
Pastoral Care Encounter/Spiritual Assessment Type of Contact [] Declined law firm receptionist visit [] Patient/Family/Request visit [] Outpatient visit [] Follow-up visit [] Physician referral [] Code/Alert [X] Routine visit [] Staff referral [] Actively dying [] Patient sleeping [] Family support [] [] Out of room [] Palliative care [] [] Receiving care in room [] Pre-surgical visit [] Trauma [] Long length of stay [] ICU visit [] Other: Relational/Emotional Strength [] Patient feels connected with others/family/visitors/staff [] Distress [] Loneliness/isolation [] Abandonment Spirituality of Patient [] Person of Tashia [] Attends Jain of their Tashia [] Believes in Prayer [] Reads Bible or Anabaptism materials [] There are Spiritual issues to be addressed Commercial Portfolio Manager Interventions [X] Prayer [] Active listening [] Non-anxious presence [] Spiritual/emotional support [] Crisis/trauma care [] Spiritual counseling [] Bereavement support [] Provided bereavement packet [] Provided Bible/devotional materials [] Provided toy/stuffed animal, coloring book to patient or family member [] Provided Communion [] Anointing/[place] [] Salvation [] Completed spiritual assessment [] Other: Impact on Illness or Injury [] Angry [] Fearful [] Anxious [] Often cries [] Exhaustion [] Unable to work [] Unable to attend buddhism [] Unable to walk/stand [] Unable to read [] Unable to drive [] Unable to eat/drink [] Unable to sleep [] Unable to be with family [] Patient intubated [] Other: Summary Time spent with patient
[2019-10-13 00:12] VITALS: BP 140/83; PULSE 61; RESP 22; TEMP 36.8; O2SAT 95
[2019-10-13 04:00] VITALS: BP 185/87; PULSE 53; RESP 13; TEMP 36.7; O2SAT 93
[2019-10-13 05:00] VITALS: BP 160/78
[2019-10-13 05:08] LABS: Basophils # 0.1 10^3/uL (0.0-0.1); Basophils % 0.7 %; Eosinophils # 0.1 10^3/uL (0.0-0.8); Eosinophils % 1.9 %; Hematocrit 42.6 % (37.0-47.0); Hemoglobin 13.9 g/dL (11.5-15.3); Lymphocytes # 1.7 10^3/uL (0.8-4.8); Lymphocytes % 24.5 %; Mean Corpuscular HGB Conc 32.6 g/dL (30.0-36.0); Mean Corpuscular Hemoglobin 28.1 pg (28.0-34.0); Mean Corpuscular Volume 86.2 fL (81-99); Mean Platelet Volume 9.9 fL (7.4-10.4); Monocytes # 0.6 10^3/uL (0.2-0.9); Neutrophils # 4.5 10^3/uL (1.8-7.7); Neutrophils % 64.6 %; Nucleated Red Blood Cells % 0 %; Platelet Count 180 10^3/cmm (130-400); Red Blood Count 4.94 10^6/uL (4.1-5.3); Red Cell Distribution Width 12.6 % (12.1-15.1)
[2019-10-13 05:38] LABS: Alanine Aminotransferase 12 U/L (0-33); Albumin Level 3.9 g/dL (3.5-5.2); Alkaline Phosphatase 101 IU/L (35-105); Anion Gap 14.5 (5-19); Aspartate Amino Transferase 30 U/L (0-32); Blood Urea Nitrogen 17 mg/dL (8-23); Calcium 10.3 mg/dL (8.5-10.5); Carbon Dioxide 25 mmol/L (22-29); Chloride 107 mmol/L (98-107); Glucose 117 mg/dL (65-115); Osmolality Calculated 293 mOsm/kg (285-295); Potassium 3.5 mmol/L (3.5-5.1); Sodium 143 mmol/L (136-145); Total Bilirubin 0.8 mg/dL (0.15-1.2); Total Protein 5.9 g/dL (6.6-8.7)
--- NOTE | 2019-10-13 07:07 | P.PN_ITS ---
Subjective Subjective: Interval history: Ariella underwent angiography yesterday morning. A 99% stenosis was found in a fairly large ramus intermedius branch. This was primarily stented. She had minor nonobstructive disease elsewhere. Normal left ventricular function essentially. Some hypokinesis in the distribution of the ramus. She has done well overnight. She was put on beta-blockers however she has had bradycardia. Rates down in the 30s. Chest discomfort is gone. No problems with the insertion site. Medications: Reviewed: Yes Vitals/I&O/Wt Last Vital Signs Temp 98.1 F 10/13/19 04:00 Pulse 53 L 10/13/19 04:00 Resp 13 10/13/19 04:00 BP 160/78 10/13/19 05:00 Pulse Ox 93 10/13/19 04:00 10/12/19 10/13/19 10/13/19 22:59 06:59 14:59 Intake Total 1749.166 / 1953.333 240 / 2193.333 Balance 1749.166 / 1953.333 240 / 2193.333 Weight last 48 hrs Weight 184 lb Physical Exam Narrative: EXAM NARRATIVE: GENERAL: In general she looks and feels well HEENT: Exam within normal limits. NECK: Supple without jugular vein distention. The carotid upstroke is normal without bruits. BACK: Exam normal. LUNGS: Clear. HEART: Regular rate and rhythm. ABDOMEN: Benign without organomegaly or tenderness. EXTREMITIES: No edema. The right radial insertion site is flat, dry without bleeding or hematoma. NEUROLOGIC: Exam normal. SKIN: Unremarkable. Data : 10/13/19 03:57 10/13/19 03:57 A&P Assessment and plan (1) CAD (coronary artery disease): Status: Acute Code(s): I25.10 - Atherosclerotic heart disease of [place] coronary artery without angina pectoris (2) Hypertension: Status: Acute Code(s): I10 - Essential (primary) hypertension (3) Acute non-ST segment elevation myocardial infarction: Status: Acute Code(s): I21.4 - Non-ST elevation (NSTEMI) myocardial infarction (4) Dyslipidemia: Status: Acute Code(s): E78.5 - Hyperlipidemia, unspecified Additional A&P Information We are going to have to discontinue the beta-alex because of bradycardia. I have done so. She should not be sent home on a beta-alex. She should go home on amlodipine, aspirin 81 mg daily, benazepril and fish oil. She should also go home on a statin. My office will call her tomorrow to schedule a follow-up appointment. She should not lift anything over 5 pounds with the right arm for 2 days. Attestations Medical Necessity Statement*: Not applicable Coding Level of Care Code Established Pt Acute Pesticide Chemist for Tram García Patient Type Established History Detailed Exam Detailed Medical Decision Making Moderate Complexity Diagnoses CAD (coronary artery disease) I25.10 Hypertension I10 Acute non-ST segment elevation myocardial infarction I21.4 Dyslipidemia E78.5
[2019-10-13 07:53] VITALS: BP 170/82; PULSE 65; RESP 19; O2SAT 97
[2019-10-13] MEDS: amlodipine 10 mg Tablet PO (08:37)
[2019-10-13] MEDS: lisinopril 20 mg Tablet PO (08:37)
[2019-10-13] MEDS: aspirin 81 mg EC Tablet PO (08:37)
[2019-10-13] MEDS: clopidogrel 75 mg Tablet PO (08:37)
[2019-10-13] MEDS: atorvastatin 40 mg Tablet PO (08:37)
[2019-10-13 09:07] VITALS: BP 170/82; PULSE 65; RESP 19; O2SAT 97
--- NOTE | 2019-10-13 18:11 | PM.DCS ---
Discharge Providers Date of Admission: 10/11/19 18:23 Date of Discharge: October 13, 2019 Attending Provider at Admission: Hakeem Cody MD Attending Provider at Discharge: Jesse Marroquin MD Diagnoses at Discharge Discharge Diagnosis (1) CAD (coronary artery disease): Status: Acute (2) Hypertension: Status: Acute (3) Acute non-ST segment elevation myocardial infarction: Status: Acute (4) Dyslipidemia: Status: Acute Reason for Visit Reason for Visit: Reason For Visit: cp Hospital Course Discharge Summary: This is a 74-year-old female who presented to [facility] due to complaints of chest pain, was admitted for a NSTEMI with EKG changes indicative for ischemia, had a cardiac catheterization by Dr. Fang, found to have 99% stenosis in a fairly large ramus intermedius branch, which was stented, had minor nonobstructive disease elsewhere, some hypokinesis in the distribution of the ramus. Patient was discharged on aspirin, Plavix, statin, lisinopril, with a close follow-up with Dr. Fang's office in the next week. Patient was not discharged on a beta-alex due to sinus bradycardia which was observed overnight, heart rates as low as 30s. Patient was also found to have hypertensive episodes during her admission, discharged on amlodipine 10 mg once daily, lisinopril 20 mg twice daily, with close follow-up with her primary care physician as outpatient for better titration of her blood pressure medications. Physical Exam Const: COMMON NORMALS: no apparent distress and oriented x3 HENMT: COMMON NORMALS: normocephalic HEAD & SCALP: normocephalic Neck/C-Spine: COMMON NORMALS: no JVD Resp: COMMON NORMALS: normal respiratory effort, no retractions, no use of accessory muscles and clear to auscultation bilaterally AUSCULTATION: clear to auscultation bilaterally Cardio: COMMON NORMALS: no JVD, regular rate, regular rhythm, S1 normal heart sound and S2 normal heart sound RATE: regular rate RHYTHM: regular rhythm HEART SOUNDS: S1 normal and S2 normal GI: COMMON NORMALS: normal to inspection, nondistended, normoactive bowel sounds, soft to palpation, non-tender, no hepatosplenomegaly, no masses and no bruits PALPATION: Yes soft and Yes no hepatosplenomegaly Extremity: COMMON NORMALS: normal capillary refill, no clubbing, cyanosis or edema, no calf tenderness and no pedal edema Neuro: COMMON NORMALS: oriented x3 Psych: COMMON NORMALS: mental status grossly normal Discharge Data Data Completed and Pending: Completed Studies During Hospitalization Category Date Time Status LEASE BU[employer]ER request for service Routin e Exams 10/12/19 08:32 Completed XR chest 1V aviva ble [id number] Stat Exams 10/11/19 15:07 Completed Labs from last 24 hours 10/13/19 10/13/19 03:57 03:57 WBC 7.0 RBC 4.94 Hgb 13.9 Hct 42.6 MCV 86.2 MCH 28.1 MCHC 32.6 RDW 12.6 Plt Count 180 MPV 9.9 Neut % (Auto) 64.6 Lymph % (Auto) 24.5 [place] % (Auto) 8.0 Eos % (Auto) 1.9 Baso % (Auto) 0.7 Neut # (Auto) 4.5 Lymph # (Auto) 1.7 [place] # (Auto) 0.6 Eos # (Auto) 0.1 Baso # (Auto) 0.1 Nucleated RBC % (a uto) 0 Nucleated RBCs # 0.0 Sodium 143 Potassium 3.5 Chloride 107 Carbon Dioxide 25 Anion Gap 14.5 BUN 17 Creatinine 1.1 H Glucose 117 H Calculated Osmolal ity 293 Calcium 10.3 Total Bilirubin 0.8 AST 30 ALT 12 Alkaline Phosphata se 101 Total Protein 5.9 L Albumin 3.9 Globulin 2.0 Vitals: Last Vital Signs Temp 98.1 F 10/13/19 04:00 Pulse 65 10/13/19 09:07 Resp 19 H 10/13/19 09:07 BP 170/82 10/13/19 09:07 Pulse Ox 97 10/13/19 09:07 Discharge Plan Discharge Patient Disposition: Home, Self-Care Condition: Stable Prescriptions: New atorvastatin 40 mg Tablet 40 mg PO DAILY 30 Days Qty: 30 RF: 0 clopidogrel 75 mg Tablet 75 mg PO DAILY 30 Days Qty: 30 RF: 0 aspirin 81 mg Tablet,Delayed Release (Dr/Ec) 81 mg PO DAILY 30 Days Qty: 30 RF: 0 Nitrostat 0.4 mg Tablet, Sublingual 0.4 mg sublingual Q5M PRN (Reason: Chest Pain) 3 Days Qty: 3 RF: 0 lisinopril 20 mg tablet 20 mg PO BID 30 Days Qty: 60 RF: 0 Continued Fishoil 1 tab PO DAILY RF: 0 Sary Superfruit Otc 250 mg PO DAILY RF: 0 magnesium 500 mg PO DAILY RF: 0 CoQ-10 100 mg Capsule 100 mg PO DAILY RF: 0 Changed amlodipine 5 mg Tablet 10 mg PO DAILY 30 Days Qty: 30 RF: 0 Discontinued benazepril 20 mg Tablet 20 mg PO DAILY RF: 0 aspirin 325 mg Tablet 1 mg PO PRN PRN (Reason: Inflammation) RF: 0 Discharge Orders: Discharge Order (Routine); Ordered 10/13/19 Ordered By: Jesse Marroquin Other Ambulatory Orders: Comprehensive Metabolic Panel (Routine) Timeframe: 2 Days Facility: [facility] - Location: Lab - Main Lab Ordered By: Jesse Marroquin Referrals: Abram Fang MD [Physician] - 4-7 days ([facility] will contact you to schedule an follow-up appointment in 4 to 7 days. If, you haven't heard from them by Monday. Please, call ) Chico Robles MD [Family Provider] - (Please, call for an follow-up appointment with Dr. Robles in 4 to 7 days. ) Discharge Diet: Cardiac Discharge Activity: As per cardiac/pulm rehab instructions Patient Instructions: Lisinopril (By mouth), Nitroglycerin, Rapid Release (By mouth), Atorvastatin (By mouth), Clopidogrel (By mouth), Myocardial Infarction (DC), Coronary Artery Disease (DC), Coronary Intravascular Stent Placement (DC), Chronic Hypertension (GEN), Post Angiogram Home Care Instructions, Post Heart Attack Stoplight Activity Restrictions/Additional Instructions: -follow up with Dr. Fang in 1 week -follow up with primary care for blood pressure check in 1-2 weeks -do blood work cmp in 2-3 days -no lifiting over 5 lbs with right arm for next week Discharge Date/Time: 10/13/19 09:33 Discharge Attestations Time Spent in Discharge Care*: less than 30 min Quality Metrics Clinical Quality Measures During this hospital stay, did patient experience: None Coding Level of Care Code Acute Customer Success Intern for [employer] Diagnoses CAD (coronary artery disease) I25.10 Hypertension I10 Acute non-ST segment elevation myocardial infarction I21.4 Dyslipidemia E78.5
== END 2019-10-13 09:33 | disposition home or self-care (01) | DRG 247 ==
LOC: ER 18:47 → CSU 18:52
PROVIDERS: Emergency Medicine; Internal Medicine Cardiovascular Disease; Admitting Provider Internal Medicine; Emergency Provider Emergency Medicine; Family Provider Family Medicine; Visit Provider Family Medicine
PROC: 027034Z Dilation of Coronary Artery, One Artery with Drug-eluting Intraluminal Device, Percutaneous Approach (ICD-10-PCS; principal; 2019-10-12 07:00)
PROC: 027034Z Dilation of Coronary Artery, One Artery with Drug-eluting Intraluminal Device, Percutaneous Approach (ICD-10-PCS; 2019-10-12 07:00)
DX: I21.02 ST elevation (STEMI) myocardial infarction involving left anterior descending coronary artery (principal); I25.10 Atherosclerotic heart disease of native coronary artery without angina pectoris; I10 Essential (primary) hypertension; E78.5 Hyperlipidemia, unspecified; Z79.82 Long term (current) use of aspirin; R00.1 Bradycardia, unspecified; T46.4X5A Adverse effect of angiotensin-converting-enzyme inhibitors, initial encounter; Y92.230 Patient room in hospital as the place of occurrence of the external cause; Z86.718 Personal history of other venous thrombosis and embolism; Z85.038 Personal history of other malignant neoplasm of large intestine; M19.90 Unspecified osteoarthritis, unspecified site
CPT/HCPCS: 12345; 36415; 71045; 80048; 80053; 80061; 83036; 84484; 85025; 93005; 93452; 96372; 99283; C1769; C1874; C1887; C1894; C9600; J1644; J1650; J2001; J2250; J3010; J7030; Q0163; Q9967

== ENCOUNTER → 2019-10-21 12:10 | Outpatient (BNVA) | payer MEDICARE, OTHER, SELFPAY | PROVIDERS: Family Provider Family Medicine; PCP Family Medicine; Visit Provider Nurse Practitioner Family | DX: I25.119 Atherosclerotic heart disease of native coronary artery with unspecified angina pectoris (principal) | CPT/HCPCS: 80048 ==

== ENCOUNTER 2020-01-02 12:20 | Outpatient (RCR) | payer MEDICARE, OTHER, SELFPAY | END 2020-01-28 23:59 | disposition home or self-care (01) | LOC: CR 12:20 | PROVIDERS: Family Provider Family Medicine; PCP Family Medicine; Referring Provider Internal Medicine Cardiovascular Disease; Visit Provider Internal Medicine Cardiovascular Disease | DX: Z95.5 Presence of coronary angioplasty implant and graft (principal) | CPT/HCPCS: 93798 ==

== ENCOUNTER 2020-02-10 15:08 | Outpatient (CLI) | payer MEDICARE, OTHER, SELFPAY ==
--- NOTE | 2020-02-10 15:17 | MM_ITS ---
WS: [id number] BILATERAL DIGITAL SCREENING MAMMOGRAM WITH CAD CLINICAL INFORMATION: SCREENING HISTORY: Screening mammogram. No current complaints. COMPARISON: TECHNIQUE: Bilateral CC and MLO views. FINDINGS: Fatty-replaced breasts bilaterally. Right breast more than left unchanged. No suspicious focal mass, asymmetry, calcifications, or architectural distortion. No evidence of malignancy. MM/[id number] IMPRESSION: BI-RADS: 1-Negative FOLLOW UP: 1 Year Follow-up Recommend return to annual screening mammography.
--- NOTE | 2020-02-10 15:50 | XR_ITS ---
WS: [id number] SCREENING DEXA SCAN [facility] CLINICAL INFORMATION: POST MENOPAUSAL COMPARISON: None. FINDINGS: The L1-L4 bone mineral density measures 1.582 g/cm2. This corresponds to a T score score of 3.4 and Z score of 4.8. Left femoral neck bone mineral density measures 0.780 g/cm2. This corresponds to a T score of -1.8 an d Z score of -0.3. Right femoral neck bone mineral density measures 0.814 g/cm2. This corresponds to a T score -1.5of an d Z score of -0.1. Mean femoral neck bone mineral density measures 0.797 g/cm2. This corresponds to a T score of -1.7 an d Z score of -0.2. XR/XR DEXA axial skeleton* [id number] IMPRESSION: Osteopenia in the femoral necks. Patient's FRAX calculated 10 year probability for major osteoporotic fracture i s 11.4 % and osteoporotic hip fracture is 2.4%.
== END 2020-02-10 15:09 | disposition home or self-care (01) ==
LOC: RADSHAW 15:15
PROVIDERS: PCP Family Medicine; Visit Provider Family Medicine
DX: Z12.31 Encounter for screening mammogram for malignant neoplasm of breast (principal); Z78.0 Asymptomatic menopausal state; M85.89 Other specified disorders of bone density and structure, multiple sites
CPT/HCPCS: 77067; 77080

== ENCOUNTER 2020-02-11 10:03 | Outpatient (RCR) | payer MEDICARE, OTHER, SELFPAY | END 2020-02-28 23:59 | disposition home or self-care (01) | LOC: CR 10:03 | PROVIDERS: PCP Family Medicine; Referring Provider Internal Medicine Cardiovascular Disease; Visit Provider Internal Medicine Cardiovascular Disease | DX: Z95.5 Presence of coronary angioplasty implant and graft (principal) | CPT/HCPCS: 93798 ==

== ENCOUNTER 2020-03-03 08:42 | Outpatient (RCR) | payer MEDICARE, OTHER, SELFPAY | END 2020-03-30 23:59 | disposition home or self-care (01) | LOC: CR 08:42 | PROVIDERS: PCP Family Medicine; Referring Provider Internal Medicine Cardiovascular Disease; Visit Provider Internal Medicine Cardiovascular Disease | DX: Z95.5 Presence of coronary angioplasty implant and graft (principal) | CPT/HCPCS: 93798 ==

== ENCOUNTER 2020-03-31 11:15 | Outpatient (RCR) | payer MEDICARE, OTHER, SELFPAY | END 2020-04-29 23:59 | disposition home or self-care (01) | LOC: CR 11:15 | PROVIDERS: PCP Family Medicine; Referring Provider Internal Medicine Cardiovascular Disease; Visit Provider Internal Medicine Cardiovascular Disease | DX: Z95.5 Presence of coronary angioplasty implant and graft (principal) | CPT/HCPCS: 93798 ==

== ENCOUNTER 2020-05-01 08:54 | Outpatient (RCR) | payer SELFPAY | END 2020-05-30 23:59 | disposition home or self-care (01) | LOC: CR 08:54 | PROVIDERS: PCP Family Medicine; Referring Provider Internal Medicine Cardiovascular Disease; Visit Provider Internal Medicine Cardiovascular Disease | DX: Z98.61 Coronary angioplasty status (principal) ==

== ENCOUNTER 2020-05-31 12:46 | Outpatient (RCR) | payer SELFPAY | END 2020-06-29 23:59 | disposition home or self-care (01) | LOC: CR 12:46 | PROVIDERS: PCP Family Medicine; Referring Provider Internal Medicine Cardiovascular Disease; Visit Provider Internal Medicine Cardiovascular Disease | DX: Z95.5 Presence of coronary angioplasty implant and graft (principal) ==

== ENCOUNTER 2020-06-30 10:58 | Outpatient (RCR) | payer SELFPAY | END 2020-07-30 23:59 | disposition home or self-care (01) | LOC: CR 10:58 | PROVIDERS: PCP Family Medicine; Referring Provider Internal Medicine Cardiovascular Disease; Visit Provider Internal Medicine Cardiovascular Disease | DX: Z98.61 Coronary angioplasty status (principal) ==

== ENCOUNTER 2020-07-31 13:51 | Outpatient (RCR) | payer SELFPAY | END 2020-08-30 23:59 | disposition home or self-care (01) | LOC: CR 13:51 | PROVIDERS: PCP Family Medicine; Referring Provider Internal Medicine Cardiovascular Disease; Visit Provider Internal Medicine Cardiovascular Disease | DX: Z95.5 Presence of coronary angioplasty implant and graft (principal) ==

== ENCOUNTER 2020-09-01 11:19 | Outpatient (RCR) | payer SELFPAY | END 2020-09-27 23:59 | disposition home or self-care (01) | LOC: CR 11:19 | PROVIDERS: PCP Family Medicine; Referring Provider Internal Medicine Cardiovascular Disease; Visit Provider Internal Medicine Cardiovascular Disease | DX: Z98.61 Coronary angioplasty status (principal) ==

== ENCOUNTER 2020-09-08 10:34 | Outpatient (CLI) | payer MEDICARE, OTHER, SELFPAY ==
--- NOTE | 2020-09-08 10:38 | MM_ITS ---
WS: [id number] DIAGNOSTIC LEFT DIGITAL MAMMOGRAM WITH CAD LEFT breast ultrasound, limited HISTORY: MASS IN LEFT BREAST-LOWER OUTER QUADRANT COMPARISON: 02/10/2020, 10/03/2017 Technique: CC, MLO and ML views. Spot compression LEFT MLO. Breast composition: There are scattered areas of fibroglandular density. 2 palpable markers are plac ed along the inferior LEFT breast. There is no underlying soft tissue mass. No distortion. LEFT breast ultrasound, limited. Ultrasound at 3:00 demonstrates no abnormality. No solid or cystic changes. MM/[id number] IMPRESSION: BI-RADS: 2-Benign FOLLOW UP: 1 Year Follow-up No mass or abnormality 3:00 LEFT breast.
== END 2020-09-08 10:35 | disposition home or self-care (01) ==
LOC: RADSHAW 10:35
PROVIDERS: PCP Family Medicine; Visit Provider Dermatology
DX: N63.23 Unspecified lump in the left breast, lower outer quadrant (principal)
CPT/HCPCS: 76642; 77065

== ENCOUNTER 2020-09-28 11:20 | Outpatient (RCR) | payer SELFPAY | END 2020-10-28 23:59 | disposition home or self-care (01) | LOC: CR 11:20 | PROVIDERS: PCP Family Medicine; Referring Provider Internal Medicine Cardiovascular Disease; Visit Provider Internal Medicine Cardiovascular Disease | DX: Z98.61 Coronary angioplasty status (principal) ==

== ENCOUNTER 2020-10-29 10:02 | Outpatient (RCR) | payer SELFPAY | END 2020-11-27 23:59 | disposition home or self-care (01) | LOC: CR 10:02 | PROVIDERS: PCP Family Medicine; Referring Provider Internal Medicine Cardiovascular Disease; Visit Provider Internal Medicine Cardiovascular Disease | DX: Z98.61 Coronary angioplasty status (principal) ==

== ENCOUNTER 2020-11-30 11:09 | Outpatient (RCR) | payer SELFPAY | END 2020-12-28 23:59 | disposition home or self-care (01) | LOC: CR 11:09 | PROVIDERS: PCP Family Medicine; Referring Provider Internal Medicine Cardiovascular Disease; Visit Provider Internal Medicine Cardiovascular Disease | DX: Z98.61 Coronary angioplasty status (principal) ==

== ENCOUNTER 2020-12-29 14:37 | Outpatient (RCR) | payer SELFPAY | END 2021-01-27 23:59 | disposition home or self-care (01) | LOC: CR 14:37 | PROVIDERS: PCP Family Medicine; Referring Provider Internal Medicine Cardiovascular Disease; Visit Provider Internal Medicine Cardiovascular Disease | DX: Z98.61 Coronary angioplasty status (principal) ==

== ENCOUNTER 2021-01-28 14:18 | Outpatient (RCR) | payer SELFPAY | END 2021-02-27 23:59 | disposition home or self-care (01) | LOC: CR 14:18 | PROVIDERS: PCP Family Medicine; Referring Provider Internal Medicine Cardiovascular Disease; Visit Provider Internal Medicine Cardiovascular Disease | DX: Z98.61 Coronary angioplasty status (principal) ==

== ENCOUNTER 2021-03-04 15:08 | Outpatient (RCR) | payer SELFPAY | END 2021-03-30 23:59 | disposition home or self-care (01) | LOC: CR 15:08 | PROVIDERS: PCP Family Medicine; Referring Provider Internal Medicine Cardiovascular Disease; Visit Provider Internal Medicine Cardiovascular Disease | DX: Z98.61 Coronary angioplasty status (principal) ==

== ENCOUNTER 2021-04-01 13:58 | Outpatient (RCR) | payer SELFPAY | END 2021-04-29 23:59 | disposition home or self-care (01) | LOC: CR 13:58 | PROVIDERS: PCP Family Medicine; Referring Provider Internal Medicine Cardiovascular Disease; Visit Provider Internal Medicine Cardiovascular Disease | DX: Z98.61 Coronary angioplasty status (principal) ==

== ENCOUNTER 2021-05-04 09:49 | Outpatient (RCR) | payer SELFPAY | END 2021-05-30 23:59 | disposition home or self-care (01) | LOC: CR 09:49 | PROVIDERS: PCP Family Medicine; Referring Provider Internal Medicine Cardiovascular Disease; Visit Provider Internal Medicine Cardiovascular Disease | DX: Z98.61 Coronary angioplasty status (principal) ==

== ENCOUNTER 2021-05-31 13:39 | Outpatient (RCR) | payer SELFPAY | END 2021-06-29 23:59 | disposition home or self-care (01) | LOC: CR 13:39 | PROVIDERS: PCP Family Medicine; Referring Provider Internal Medicine Cardiovascular Disease; Visit Provider Internal Medicine Cardiovascular Disease | DX: Z98.61 Coronary angioplasty status (principal) ==

== ENCOUNTER 2021-06-30 13:17 | Outpatient (RCR) | payer SELFPAY | END 2021-07-30 23:59 | disposition home or self-care (01) | LOC: CR 13:17 | PROVIDERS: PCP Family Medicine; Referring Provider Internal Medicine Cardiovascular Disease; Visit Provider Internal Medicine Cardiovascular Disease | DX: Z98.61 Coronary angioplasty status (principal) ==

== ENCOUNTER 2021-08-02 10:32 | Outpatient (RCR) | payer SELFPAY | END 2021-08-30 23:59 | disposition home or self-care (01) | LOC: CR 10:32 | PROVIDERS: PCP Family Medicine; Referring Provider Internal Medicine Cardiovascular Disease; Visit Provider Internal Medicine Cardiovascular Disease | DX: Z98.61 Coronary angioplasty status (principal) ==

== ENCOUNTER 2021-09-28 13:09 | Outpatient (RCR) | payer SELFPAY | END 2021-10-28 23:59 | disposition home or self-care (01) | LOC: CR 13:09 | PROVIDERS: PCP Family Medicine; Referring Provider Internal Medicine Cardiovascular Disease; Visit Provider Internal Medicine Cardiovascular Disease | DX: Z98.61 Coronary angioplasty status (principal) ==

== ENCOUNTER 2021-10-29 13:13 | Outpatient (RCR) | payer SELFPAY | END 2021-11-27 23:59 | disposition home or self-care (01) | LOC: CR 13:13 | PROVIDERS: PCP Family Medicine; Referring Provider Internal Medicine Cardiovascular Disease; Visit Provider Internal Medicine Cardiovascular Disease | DX: Z98.61 Coronary angioplasty status (principal) ==

== ENCOUNTER 2021-11-29 12:40 | Outpatient (RCR) | payer SELFPAY | END 2021-12-28 23:59 | disposition home or self-care (01) | LOC: CR 12:40 | PROVIDERS: PCP Family Medicine; Referring Provider Internal Medicine Cardiovascular Disease; Visit Provider Internal Medicine Cardiovascular Disease | DX: Z98.61 Coronary angioplasty status (principal) ==

== ENCOUNTER → 2021-12-13 13:48 | Outpatient (BNVA) | payer MEDICARE, SELFPAY | PROVIDERS: PCP Family Medicine; Visit Provider Internal Medicine Cardiovascular Disease | DX: I25.119 Atherosclerotic heart disease of native coronary artery with unspecified angina pectoris (principal); I10 Essential (primary) hypertension; E78.5 Hyperlipidemia, unspecified | CPT/HCPCS: 99214 ==

== ENCOUNTER 2021-12-29 11:16 | Outpatient (RCR) | payer SELFPAY | END 2022-01-27 23:59 | disposition home or self-care (01) | LOC: CR 11:16 | PROVIDERS: PCP Family Medicine; Referring Provider Internal Medicine Cardiovascular Disease; Visit Provider Internal Medicine Cardiovascular Disease | DX: Z98.61 Coronary angioplasty status (principal) ==

== ENCOUNTER 2022-01-28 11:35 | Outpatient (RCR) | payer SELFPAY | END 2022-02-27 23:59 | disposition home or self-care (01) | LOC: CR 11:35 | PROVIDERS: PCP Family Medicine; Referring Provider Internal Medicine Cardiovascular Disease; Visit Provider Internal Medicine Cardiovascular Disease | DX: Z98.61 Coronary angioplasty status (principal) ==

== ENCOUNTER 2022-02-18 12:51 | Outpatient (CLI) | payer MEDICARE, SELFPAY ==
--- NOTE | 2022-02-18 13:02 | XR_ITS ---
WS: [id number] DEXA (DUAL ENERGY X-RAY ABSORPTIOMETRY) Bone mineral density was performed using a [employer] machine. HISTORY: POSTMENOPAUSAL COMPARISON: 02/10/2020 Lumbar spine BMD (L1-L4): 1.613 g/cm2 T score: 3.6 Z score: 5.0 Total hip BMD: Left: 0.721 g/cm2. T score: -2.3 Z score: -0.7 Right: 0.751 g/cm2. T score: -2.0 Z score: -0.5 10 year probability of a major osteoporotic fracture is 13.1%. Compared to the prior study from 02/10/2020. Lumbar spine bone mineral density has increased by 2.0%. Bilateral hips bone mineral density has decreased by 7.7%. XR/XR DEXA axial skeleton* [id number] IMPRESSION: OSTEOPENIA based upon the WHO classification for females. Significant decrease in bone mineral density within the hips since the prior study.
--- NOTE | 2022-02-18 13:02 | MM_ITS ---
WS: [id number] BILATERAL 3D TOMOSYNTHESIS DIGITAL SCREENING MAMMOGRAPHY WITH CAD CLINICAL INFORMATION: SCREENING HISTORY: Screening mammogram. No current complaints. COMPARISON: September 08, 2020 TECHNIQUE: Bilateral CC and MLO views. FINDINGS: Scattered fibroglandular densities bilaterally. A few incidental punctate and lucent centered calcifi cations. No suspicious focal mass, asymmetry, calcifications, or architectural distortion. No evidenc e of malignancy. MM/[place] [id number] IMPRESSION: BI-RADS: 2-Benign FOLLOW UP: 1 Year Follow-up Recommend return to annual screening mammography.
== END 2022-02-18 12:52 | disposition home or self-care (01) ==
PROVIDERS: PCP Family Medicine; Visit Provider Family Medicine
DX: Z78.0 Asymptomatic menopausal state (principal); Z12.31 Encounter for screening mammogram for malignant neoplasm of breast
CPT/HCPCS: 77063; 77067; 77080

== ENCOUNTER 2022-02-28 11:31 | Outpatient (RCR) | payer SELFPAY | END 2022-03-30 23:59 | disposition home or self-care (01) | LOC: CR 11:31 | PROVIDERS: PCP Family Medicine; Referring Provider Internal Medicine Cardiovascular Disease; Visit Provider Internal Medicine Cardiovascular Disease | DX: Z98.61 Coronary angioplasty status (principal) ==

== ENCOUNTER 2022-03-31 15:40 | Outpatient (RCR) | payer SELFPAY | END 2022-04-29 23:59 | disposition home or self-care (01) | LOC: CR 15:40 | PROVIDERS: PCP Family Medicine; Referring Provider Internal Medicine Cardiovascular Disease; Visit Provider Internal Medicine Cardiovascular Disease | DX: Z98.61 Coronary angioplasty status (principal) ==

== ENCOUNTER → 2022-04-19 15:16 | Outpatient (BNVA) | payer MEDICARE, SELFPAY | PROVIDERS: PCP Family Medicine; Referring Provider Family Medicine; Visit Provider Internal Medicine | DX: E21.0 Primary hyperparathyroidism (principal); M85.80 Other specified disorders of bone density and structure, unspecified site | CPT/HCPCS: 80048; 82310; 83970; 99204 ==

== ENCOUNTER 2022-05-02 10:41 | Outpatient (RCR) | payer SELFPAY | END 2022-05-30 23:59 | disposition home or self-care (01) | LOC: CR 10:41 | PROVIDERS: PCP Family Medicine; Referring Provider Internal Medicine Cardiovascular Disease; Visit Provider Internal Medicine Cardiovascular Disease | DX: Z98.61 Coronary angioplasty status (principal) ==

== ENCOUNTER 2022-08-03 12:34 | Outpatient (RCR) | payer SELFPAY | END 2022-08-30 23:59 | disposition home or self-care (01) | LOC: CR 12:34 | PROVIDERS: PCP Family Medicine; Referring Provider Internal Medicine Cardiovascular Disease; Visit Provider Internal Medicine Cardiovascular Disease | DX: Z98.61 Coronary angioplasty status (principal) ==

== ENCOUNTER 2022-08-31 13:56 | Outpatient (RCR) | payer SELFPAY | END 2022-09-27 23:59 | disposition home or self-care (01) | LOC: CR 13:56 | PROVIDERS: PCP Family Medicine; Referring Provider Internal Medicine Cardiovascular Disease; Visit Provider Internal Medicine Cardiovascular Disease | DX: Z98.61 Coronary angioplasty status (principal) ==

== ENCOUNTER 2022-09-28 14:35 | Outpatient (RCR) | payer SELFPAY | END 2022-10-28 23:59 | disposition home or self-care (01) | LOC: CR 14:35 | PROVIDERS: PCP Family Medicine; Referring Provider Internal Medicine Cardiovascular Disease; Visit Provider Internal Medicine Cardiovascular Disease | DX: Z98.61 Coronary angioplasty status (principal) ==

== ENCOUNTER 2022-10-17 09:25 | Outpatient (CLI) | payer MEDICARE, SELFPAY ==
[2022-10-17 10:27] LABS: Anion Gap 10.9 (5-19); Blood Urea Nitrogen 16 mg/dL (8-23); Calcium 10.6 mg/dL (8.5-10.5); Carbon Dioxide 29 mmol/L (22-29); Chloride 106 mmol/L (98-107); Glucose 125 mg/dL (65-115); Osmolality Calculated 297 mOsm/kg (285-295); Potassium 3.9 mmol/L (3.5-5.1); Sodium 142 mmol/L (136-145)
[2022-10-17 10:38] LABS: Calcium 10.5 mg/dL (8.5-10.5); Parathyroid Hormone 169.7 pg/mL (15-65)
== END 2022-10-17 09:26 | disposition home or self-care (01) ==
PROVIDERS: PCP Family Medicine; Visit Provider Internal Medicine
DX: E21.0 Primary hyperparathyroidism (principal); E78.5 Hyperlipidemia, unspecified
CPT/HCPCS: 36415; 80048; 82310; 83970

== ENCOUNTER → 2022-10-18 13:00 | Outpatient (BNVA) | payer MEDICARE, SELFPAY | PROVIDERS: PCP Family Medicine; Visit Provider Internal Medicine | DX: E21.0 Primary hyperparathyroidism (principal); M85.80 Other specified disorders of bone density and structure, unspecified site; E55.9 Vitamin D deficiency, unspecified | CPT/HCPCS: 99214 ==

== ENCOUNTER 2022-10-31 12:07 | Outpatient (RCR) | payer SELFPAY | END 2022-11-27 23:59 | disposition home or self-care (01) | LOC: CR 12:07 | PROVIDERS: PCP Family Medicine; Referring Provider Internal Medicine Cardiovascular Disease; Visit Provider Internal Medicine Cardiovascular Disease | DX: Z98.61 Coronary angioplasty status (principal) ==

== ENCOUNTER 2022-11-28 12:37 | Outpatient (RCR) | payer MEDICARE, SELFPAY | END 2022-12-28 23:59 | disposition home or self-care (01) | LOC: SPT 12:37 | PROVIDERS: PCP Family Medicine; Visit Provider Student in an Organized Health Care Education/Training Program | DX: Z47.89 Encounter for other orthopedic aftercare (principal); Z96.652 Presence of left artificial knee joint | CPT/HCPCS: 97110; 97161 ==

== ENCOUNTER 2022-12-29 06:00 | Outpatient (RCR) | payer MEDICARE, SELFPAY | END 2023-01-27 23:59 | disposition home or self-care (01) | LOC: SPT 06:00 | PROVIDERS: PCP Family Medicine; Visit Provider Student in an Organized Health Care Education/Training Program | DX: Z47.1 Aftercare following joint replacement surgery (principal); Z96.652 Presence of left artificial knee joint | CPT/HCPCS: 97110 ==

== ENCOUNTER → 2023-02-13 14:50 | Outpatient (BNVA) | payer MEDICARE, SELFPAY | PROVIDERS: PCP Family Medicine; Visit Provider Internal Medicine Cardiovascular Disease | DX: I25.119 Atherosclerotic heart disease of native coronary artery with unspecified angina pectoris (principal); I10 Essential (primary) hypertension; E78.5 Hyperlipidemia, unspecified; M19.90 Unspecified osteoarthritis, unspecified site | CPT/HCPCS: 99214 ==

== ENCOUNTER 2023-03-07 13:32 | Outpatient (RCR) | payer SELFPAY | END 2023-03-30 23:59 | disposition home or self-care (01) | LOC: CR 13:32 | PROVIDERS: PCP Family Medicine; Referring Provider Family Medicine; Visit Provider Family Medicine | DX: Z95.5 Presence of coronary angioplasty implant and graft (principal) ==

== ENCOUNTER 2023-03-31 11:03 | Outpatient (RCR) | payer SELFPAY | END 2023-04-29 23:59 | disposition home or self-care (01) | LOC: CR 11:03 | PROVIDERS: PCP Family Medicine; Referring Provider Family Medicine; Visit Provider Family Medicine | DX: Z95.5 Presence of coronary angioplasty implant and graft (principal) ==

== ENCOUNTER → 2023-04-26 14:59 | Outpatient (BNVA) | payer MEDICARE, SELFPAY | PROVIDERS: PCP Family Medicine; Visit Provider Nurse Practitioner Family | DX: D48.9 Neoplasm of uncertain behavior, unspecified (principal); D22.5 Melanocytic nevi of trunk; I78.8 Other diseases of capillaries; L82.1 Other seborrheic keratosis; L91.8 Other hypertrophic disorders of the skin; L57.8 Other skin changes due to chronic exposure to nonionizing radiation; L81.4 Other melanin hyperpigmentation; L57.0 Actinic keratosis | CPT/HCPCS: 17000; 99213 ==

== ENCOUNTER 2023-05-02 13:48 | Outpatient (RCR) | payer SELFPAY | END 2023-05-30 23:59 | disposition home or self-care (01) | LOC: CR 13:48 | PROVIDERS: PCP Family Medicine; Referring Provider Family Medicine; Visit Provider Family Medicine | DX: Z95.5 Presence of coronary angioplasty implant and graft (principal) ==

== ENCOUNTER 2023-05-31 09:27 | Outpatient (RCR) | payer SELFPAY | END 2023-06-29 23:59 | disposition home or self-care (01) | LOC: CR 09:27 | PROVIDERS: PCP Family Medicine; Referring Provider Family Medicine; Visit Provider Family Medicine | DX: Z95.5 Presence of coronary angioplasty implant and graft (principal) ==

== ENCOUNTER → 2023-06-15 11:15 | Outpatient (BNVA) | payer MEDICARE, SELFPAY | PROVIDERS: PCP Family Medicine; Visit Provider Nurse Practitioner Family | DX: Z80.8 Family history of malignant neoplasm of other organs or systems (principal); L57.0 Actinic keratosis; L81.0 Postinflammatory hyperpigmentation; L57.8 Other skin changes due to chronic exposure to nonionizing radiation | CPT/HCPCS: 17000; 99213 ==

== ENCOUNTER 2023-08-01 11:05 | Outpatient (RCR) | payer SELFPAY | END 2023-08-30 23:59 | disposition home or self-care (01) | LOC: CR 11:05 | PROVIDERS: PCP Family Medicine; Referring Provider Family Medicine; Visit Provider Family Medicine | DX: Z95.5 Presence of coronary angioplasty implant and graft (principal) ==

== ENCOUNTER 2023-08-31 13:58 | Outpatient (RCR) | payer SELFPAY | END 2023-09-28 23:59 | disposition home or self-care (01) | LOC: CR 13:58 | PROVIDERS: PCP Family Medicine; Referring Provider Family Medicine; Visit Provider Family Medicine | DX: Z95.5 Presence of coronary angioplasty implant and graft (principal) ==

== ENCOUNTER 2024-02-22 12:35 | Outpatient (CLI) | payer MEDICARE, SELFPAY ==
--- NOTE | 2024-02-22 12:40 | MM_ITS ---
WS: [id number] BILATERAL SCREENING DIGITAL TOMOSYNTHESIS MAMMOGRAM WITH CAD HISTORY: SCREENING COMPARISON: 02/18/2022, 06/13/2016 Bilateral CC and MLO views with tomosynthesis and synthetic mammography submitted. Computer aided det ection analyzed. Breast composition: The breasts are almost entirely fatty. No suspicious masses, microcalcifications or architectural distortion. Benign calcifications LEFT breast. MM/[id number] IMPRESSION: BI-RADS: 2-Benign FOLLOW UP: 1 Year Follow-up
--- NOTE | 2024-02-22 12:40 | XR_ITS ---
WS: [id number] SCREENING DEXA SCAN [employer] [facility] [employer] CLINICAL INFORMATION: POSTMENOPAUSAL COMPARISON: 2021 FINDINGS: The L1-L4 bone mineral density measures 1.609 g/cm2. This corresponds to a T score score of 3.6 and Z score of 5.0. Left femoral neck bone mineral density measures 0.777 g/cm2. This corresponds to a T score of -1.8 an d Z score of -0.2. Right femoral neck bone mineral density measures 0.688 g/cm2. This corresponds to a T score -2.5of an d Z score of -0.9. Mean femoral neck bone mineral density measures 0.733 g/cm2. This corresponds to a T score of -2.2 an d Z score of -0.5. XR/XR DEXA axial skeleton* [id number] IMPRESSION: Normal bone mineralization lumbar spine. Osteopenia femoral necks. Patient's FRAX calculated 10 year probability for major osteoporotic fracture i s 20.0% and osteoporotic hip fracture is 7.2%. Bone mineral density lumbar spine decreased -0.2% Bone mineral density femoral necks decreased -0.4%
== END 2024-02-22 12:36 | disposition home or self-care (01) ==
LOC: RAD 12:36
PROVIDERS: PCP Family Medicine; Visit Provider Family Medicine
DX: Z12.31 Encounter for screening mammogram for malignant neoplasm of breast (principal); Z78.0 Asymptomatic menopausal state; M85.88 Other specified disorders of bone density and structure, other site; R92.313 Mammographic fatty tissue density, bilateral breasts; R92.1 Mammographic calcification found on diagnostic imaging of breast
CPT/HCPCS: 77063; 77067; 77080

== ENCOUNTER → 2024-03-01 09:51 | Outpatient (BNVA) | payer MEDICARE, SELFPAY | PROVIDERS: PCP Family Medicine; Visit Provider Internal Medicine Cardiovascular Disease | DX: I10 Essential (primary) hypertension (principal); E78.5 Hyperlipidemia, unspecified; I25.119 Atherosclerotic heart disease of native coronary artery with unspecified angina pectoris; I25.2 Old myocardial infarction | CPT/HCPCS: 99213 ==

== ENCOUNTER → 2024-04-29 13:54 | Outpatient (BNVA) | payer MEDICARE, SELFPAY | PROVIDERS: PCP Family Medicine; Visit Provider Nurse Practitioner Family | DX: I78.8 Other diseases of capillaries (principal); D22.5 Melanocytic nevi of trunk; L82.1 Other seborrheic keratosis; L91.8 Other hypertrophic disorders of the skin; L57.8 Other skin changes due to chronic exposure to nonionizing radiation; L81.4 Other melanin hyperpigmentation; L57.0 Actinic keratosis | CPT/HCPCS: 17000; 17110; 99213 ==

== ENCOUNTER 2024-07-01 12:40 | Outpatient (RCR) | payer MEDICARE, SELFPAY | END 2024-07-30 23:59 | disposition home or self-care (01) | LOC: SPT 12:40 | PROVIDERS: Visit Provider Student in an Organized Health Care Education/Training Program | DX: Z47.1 Aftercare following joint replacement surgery (principal); Z96.651 Presence of right artificial knee joint | CPT/HCPCS: 97110; 97161 ==

== ENCOUNTER 2024-07-31 06:00 | Outpatient (RCR) | payer MEDICARE, SELFPAY | END 2024-08-30 23:59 | disposition home or self-care (01) | LOC: SPT 06:00 | PROVIDERS: Visit Provider Student in an Organized Health Care Education/Training Program | DX: Z47.1 Aftercare following joint replacement surgery (principal); Z96.651 Presence of right artificial knee joint | CPT/HCPCS: 97110 ==

== ENCOUNTER → 2025-03-03 13:04 | Outpatient (BNVA) | payer MEDICARE, SELFPAY | PROVIDERS: Visit Provider Internal Medicine | DX: I10 Essential (primary) hypertension (principal); E78.5 Hyperlipidemia, unspecified; I25.119 Atherosclerotic heart disease of native coronary artery with unspecified angina pectoris | CPT/HCPCS: 99214 ==

== ENCOUNTER → 2025-04-29 15:11 | Outpatient (BNVA) | payer MEDICARE, SELFPAY | PROVIDERS: Visit Provider Nurse Practitioner Family | DX: L81.4 Other melanin hyperpigmentation (principal); L82.1 Other seborrheic keratosis; L82.0 Inflamed seborrheic keratosis; L29.89 Other pruritus; Z78.9 Other specified health status; R20.8 Other disturbances of skin sensation | CPT/HCPCS: 11102; 11200; 17000; 17110; 99213 ==

== ENCOUNTER → 2025-05-29 09:13 | Outpatient (BNVA) | payer MEDICARE, SELFPAY | PROVIDERS: Visit Provider Dermatology | DX: C44.311 Basal cell carcinoma of skin of nose (principal) | CPT/HCPCS: 17311 ==

== ENCOUNTER → 2025-06-11 10:41 | Outpatient (BNVA) | payer MEDICARE, SELFPAY | PROVIDERS: Visit Provider Dermatology | DX: L56.8 Other specified acute skin changes due to ultraviolet radiation (principal); L29.89 Other pruritus | CPT/HCPCS: 99214 ==

== ENCOUNTER → 2025-06-25 09:30 | Outpatient (BNVA) | payer MEDICARE, SELFPAY | PROVIDERS: Visit Provider Dermatology | DX: L56.8 Other specified acute skin changes due to ultraviolet radiation (principal); L29.89 Other pruritus; L57.0 Actinic keratosis | CPT/HCPCS: 17000; 99214 ==